=== PATIENT | male | born 1970 | race Two or more races ===

== ENCOUNTER → 2016-06-14 | Outpatient (CLI) | payer OTHER | END | disposition home or self-care (01) | LOC: RAD 15:31 | PROVIDERS: ATTEND Family Medicine | DX: M51.36 Other intervertebral disc degeneration, lumbar region (principal); M41.86 Other forms of scoliosis, lumbar region | CPT/HCPCS: 72110 ==

== ENCOUNTER → 2017-02-20 | Outpatient (CLI) | payer OTHER | END | disposition home or self-care (01) | LOC: RAD 15:19 | PROVIDERS: ATTEND Internal Medicine | DX: M25.521 Pain in right elbow (principal) ==

== ENCOUNTER 2019-05-14 06:13 | Day surgery (SDC) | payer BC ==
[~2019-05-14] VITALS: Ht 177.8 cm; Wt 85.3 kg
[~2019-05-14 06:13] MED LIST: ALLO100T30 PO; AZIT250T89 PO; CEFD300C37 PO; COLC0.6C3 PO; PANT40TA5 PO; PRED20TA PO
[2019-05-14 06:53] VITALS: BP 144/84
[2019-05-14] MEDS ORDERED: SODIUM CHLORIDE 0.9% 1,000 ML IV SCH (06:57)
[2019-05-14 07:40] LABS: INTERNATIONAL NORMALIZED RATIO 0.96 (0.93-1.1); PROTHROMBIN TIME 10.2 Seconds (9.6-11.5)
[2019-05-14] MEDS ORDERED: FENTANYL PF 100 MCG/2ML ONE (07:54)
[2019-05-14] MEDS ORDERED: FLUMAZENIL 0.1 MG/1 ML, 5ML ONE (07:54)
[2019-05-14] MEDS ORDERED: MIDAZOLAM 1 MG/ML, 5ML ONE (07:54)
[2019-05-14] MEDS ORDERED: NALOXONE 1 MG/ML, 2ML ONE (07:54)
[2019-05-25] MEDS ORDERED: FAMO20TA7 PO (07:53)
[2019-05-25] MEDS ORDERED: PRED20TA PO (07:53)
[2019-05-25] MEDS ORDERED: BENZ-17 PO (07:53)
== END 2019-05-14 11:50 | disposition home or self-care (01) ==
LOC: OUT 06:13
PROVIDERS: ATTEND Internal Medicine Nephrology
DX: N17.9 Acute kidney failure, unspecified (principal); K21.9 Gastro-esophageal reflux disease without esophagitis; M10.9 Gout, unspecified; Z98.890 Other specified postprocedural states; Z72.89 Other problems related to lifestyle
CPT/HCPCS: 36415; 50200; 77012; 85610; 88300; 99156; 99157; J2250; J3010; J2310

== ENCOUNTER 2019-07-06 12:05 | Inpatient (IN) | payer BC ==
[~2019-07-06] VITALS: Ht 177.8 cm; Wt 74.8 kg
[~2019-07-06 12:05] MED LIST changes: +BENZ-17 PO; +FAMO20TA7 PO
--- NOTE | 2019-07-06 12:30 | NUR ---
PT BROUGHT IN BY [facility] DUE TO HAVING A SYNCOPAL EPISODE WHILE EATING BREAKFAST. DID NOT FALL. PT STATES THAT HE FELT LIGHTHEADED AND DIZZY. PT WENT TO [facility] WHERE HIS ORTHOSTATIC VS WERE + (SITTING 100/60 STANDING PT BECAME PALE AND BP 60/40). HERE PT STATES THAT HE IS "FEELING MUCH BETTER" AND VS ARE STABLE. 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 PT IS A NEWLY DIAGNOSED KIDNEY DISEASE PT AND DUE TO START DIALYSIS TOMORROW. PT HAS A DIALYSIS PORT ON HIS R [place]CLAVIAN. WILL CONTINUE TO MONITOR PT.
[2019-07-06 12:33] LABS: BASOPHILS # (AUTO) 0.01 x10^3/uL (0-0.1); BASOPHILS % (AUTO) 0 % (0-1); EOSINOPHILS % (AUTO) 0 % (1-7); LYMPHOCYTES # (AUTO) 0.33 x10^3/uL (1-3.4); LYMPHOCYTES % (AUTO) 6 % (22-44); MD NO; MEAN CORPUSCULAR HEMOGLOBIN 29.7 pg (27.5-34.5); MEAN CORPUSCULAR VOLUME 87.3 fL (81-97); MEAN PLATELET VOLUME 7.4 fL (7.4-10.4); MONOCYTES # (AUTO) 0.23 x10^3/uL (0.2-0.8); MONOCYTES % (AUTO) 4 % (2-9); NEUTROPHILS # (AUTO) 4.67 x10^3/uL (1.8-6.8); NEUTROPHILS % (AUTO) 89 % (42-75); PLATELET COUNT 145 x10^3/uL (130-400); RED CELL DISTRIBUTION WIDTH 16.4 % (9.4-14.8)
[2019-07-06 12:39] LABS: ALANINE AMINOTRANSFERASE 26 U/L (12-78); ALBUMIN 2.3 g/dL (3.4-5.0); ANION GAP 10 mmol/L (5-15); CHLORIDE 101 mmol/L (98-107); CREATININE 6.67 mg/dL (0.7-1.3)
[2019-07-06 12:41] LABS: ALKALINE PHOSPHATASE 60 U/L (45-117); BILIRUBIN,TOTAL 0.4 mg/dL (0.2-1.0); TOTAL PROTEIN 5.6 g/dL (6.4-8.2)
[2019-07-06] MEDS ORDERED: ONDANSETRON ODT 4 MG PO PRN (18:00)
[2019-07-06] MEDS ORDERED: hydrALAzine 20 MG/ML, 1ML IVPush PRN (18:00)
[2019-07-06] MEDS ORDERED: ONDANSETRON 2MG/ML, 2ML IVPush PRN (18:00)
[2019-07-06] MEDS ORDERED: PLEASE ENTER HEIGHT AND WEIGHT MC SCH (18:00)
[2019-07-06] MEDS ORDERED: ACETAMINOPHEN 325 MG TABLET PO PRN (18:00)
[2019-07-06] MEDS ORDERED: LIDOCAINE 2% VISCOUS, 100ML MM PRN (18:00)
--- NOTE | 2019-07-06 18:29 | NUR ---
GAVE REPORT TO GABBY PETERSEN
[2019-07-06 18:32] LABS: TROPONIN I 0.089 ng/mL (0.000-0.045)
[2019-07-06] MEDS ORDERED: ARANESP 100 MCG/ML **ESRD SQ SCH (19:00)
[2019-07-06 19:56] VITALS: BP 133/86
[2019-07-06] MEDS: LACTULOSE 10 GM/15 ML UDC PO SCH (23:37)
[2019-07-06] MEDS: SODIUM CHLORIDE 0.9% 1,000 ML IV SCH (23:37)
[2019-07-06] MEDS: FAMOTIDINE 20 MG TABLET PO SCH (23:37)
[2019-07-06] MEDS: FLUCONAZOLE 100 MG TABLET PO SCH (23:38)
[2019-07-06] MEDS: ALLOPURINOL 100 MG TABLET PO SCH (23:38)
[2019-07-06] MEDS: HEPARIN 5,000 UNITS/ML, 1ML SQ SCH (23:39)
[2019-07-07] VITALS (9 sets, daily range): BP systolic 115–163; BP diastolic 74–92
[2019-07-07 00:13] LABS: TROPONIN I 0.094 ng/mL (0.000-0.045)
[2019-07-07] MEDS: DIPHENHYDRAMINE 25 MG CAPSULE PO PRN ×2 (01:36→22:40)
[2019-07-07] MEDS: SODIUM CHLORIDE 0.9% 1,000 ML IV SCH (07:03)
[2019-07-07 07:21] LABS: CALCIUM 7.6 mg/dL (8.5-10.1)
[2019-07-07 07:27] LABS: MEAN CORPUSCULAR HEMOGLOBIN 29.4 pg (27.5-34.5); MEAN CORPUSCULAR HGB CONC 33.3 g/dL (33.2-36.2); MEAN CORPUSCULAR VOLUME 88.3 fL (81-97); MEAN PLATELET VOLUME 7.4 fL (7.4-10.4); PLATELET COUNT 133 x10^3/uL (130-400); RED BLOOD COUNT 2.88 x10^6/uL (4.38-5.82); RED CELL DISTRIBUTION WIDTH 16.4 % (9.4-14.8)
[2019-07-07 07:28] LABS: ANION GAP 7 mmol/L (5-15); CALCIUM 7.7 mg/dL (8.5-10.1); CHLORIDE 103 mmol/L (98-107)
[2019-07-07 07:33] LABS: % IRON SATURATION 17 % (20-55); ALANINE AMINOTRANSFERASE 25 U/L (12-78); ALKALINE PHOSPHATASE 57 U/L (45-117); BILIRUBIN,TOTAL 0.3 mg/dL (0.2-1.0); CREATININE 4.85 mg/dL (0.7-1.3); IRON LEVEL 28 mcg/dL (65-175); TOTAL IRON BINDING CAPACITY 169 mcg/dL (250-450); TROPONIN I 0.089 ng/mL (0.000-0.045)
[2019-07-07] MEDS: LACTULOSE 10 GM/15 ML UDC PO SCH ×2 (08:13→19:58)
[2019-07-07] MEDS: HEPARIN 5,000 UNITS/ML, 1ML SQ SCH ×2 (08:28→16:56)
[2019-07-07] MEDS: DAPSONE 100 MG TABLET PO SCH (08:28)
[2019-07-07] MEDS ORDERED: FLUCONAZOLE 100 MG TABLET PO SCH (09:00)
[2019-07-07] MEDS ORDERED: ALLOPURINOL 100 MG TABLET PO SCH (09:00)
[2019-07-07] MEDS ORDERED: FAMOTIDINE 20 MG TABLET PO SCH (09:00)
[2019-07-07 09:16] LABS: BASOPHILS % (AUTO) 0 % (0-1); EOSINOPHILS % (AUTO) 0 % (1-7); LYMPHOCYTES # (AUTO) 0.24 x10^3/uL (1-3.4); LYMPHOCYTES % (AUTO) 6 % (22-44); MD SCAN; MONOCYTES # (AUTO) 0.12 x10^3/uL (0.2-0.8); MONOCYTES % (AUTO) 3 % (2-9); NEUTROPHILS # (AUTO) 3.38 x10^3/uL (1.8-6.8); NEUTROPHILS % (AUTO) 90 % (42-75)
[2019-07-07] MEDS: IRON SUCROSE COMPLEX 100MG/5ML IV SCH (12:50)
[2019-07-07] MEDS: ALLOPURINOL 100 MG TABLET PO SCH (19:58)
[2019-07-07] MEDS: FAMOTIDINE 20 MG TABLET PO SCH (19:58)
[2019-07-07] MEDS: FLUCONAZOLE 100 MG TABLET PO SCH (19:58)
[2019-07-08 01:02] VITALS: BP 138/76
[2019-07-08 01:03] VITALS: BP 128/75
[2019-07-08 01:04] VITALS: BP 129/76
[2019-07-08] MEDS: HEPARIN 5,000 UNITS/ML, 1ML SQ SCH ×2 (02:06→09:59)
[2019-07-08 05:17] LABS: MEAN CORPUSCULAR HGB CONC 32.9 g/dL (33.2-36.2); MEAN PLATELET VOLUME 8.1 fL (7.4-10.4); PLATELET COUNT 132 x10^3/uL (130-400); RED CELL DISTRIBUTION WIDTH 16.4 % (9.4-14.8)
[2019-07-08 05:25] LABS: ALBUMIN 1.9 g/dL (3.4-5.0); ANION GAP 7 mmol/L (5-15); CALCIUM 7.6 mg/dL (8.5-10.1); CHLORIDE 103 mmol/L (98-107)
[2019-07-08 05:29] LABS: ALANINE AMINOTRANSFERASE 25 U/L (12-78); ALKALINE PHOSPHATASE 55 U/L (45-117); BILIRUBIN,TOTAL 0.3 mg/dL (0.2-1.0); CREATININE 4.31 mg/dL (0.7-1.3); TOTAL PROTEIN 4.8 g/dL (6.4-8.2)
[2019-07-08 06:07] LABS: BASOPHILS % (AUTO) 0 % (0-1); EOSINOPHILS % (AUTO) 0 % (1-7); LYMPHOCYTES # (AUTO) 0.27 x10^3/uL (1-3.4); LYMPHOCYTES % (AUTO) 6 % (22-44); MD SCAN; MONOCYTES # (AUTO) 0.15 x10^3/uL (0.2-0.8); MONOCYTES % (AUTO) 4 % (2-9); NEUTROPHILS # (AUTO) 4.03 x10^3/uL (1.8-6.8); NEUTROPHILS % (AUTO) 90 % (42-75)
[2019-07-08 07:46] VITALS: BP 128/77
[2019-07-08] MEDS: IRON SUCROSE COMPLEX 100MG/5ML IV SCH (09:58)
[2019-07-08] MEDS: LACTULOSE 10 GM/15 ML UDC PO SCH (09:59)
[2019-07-08] MEDS: DAPSONE 100 MG TABLET PO SCH (09:59)
[2019-07-08] MEDS ORDERED: ERGOCALCIFEROL 50,000 UNIT CAPSULE PO SCH (12:30)
[2019-07-08] MEDS ORDERED: PRED20TA PO (12:57)
[2019-07-08] MEDS ORDERED: DIPH25CA26 PO (12:57)
[2019-07-08] MEDS ORDERED: ERGO500017 PO (12:57)
[2019-07-08] MEDS ORDERED: ALLO100T30 PO (12:57)
[2019-07-08] MEDS ORDERED: FLUC100T PO (12:57)
[2019-07-08] MEDS ORDERED: DARB100V SQ (12:57)
[2019-07-08] MEDS ORDERED: LIDO15SO2 MM (12:57)
[2019-07-08] MEDS ORDERED: DAPS100T PO (12:57)
[2019-07-08] MEDS ORDERED: FAMO20TA7 PO (12:57)
[2019-07-08 13:49] VITALS: BP 129/74
== END 2019-07-08 14:40 | disposition home or self-care (01) | DRG 312 ==
LOC: ED 13:10 → EDIP 15:47 → 4WST 19:38
PROVIDERS: ADMIT Internal Medicine; ATTEND Internal Medicine
PROC: 5A1D70Z Performance of Urinary Filtration, Intermittent, Less than 6 Hours Per Day (ICD-10-PCS; principal; 2019-07-06)
PROC: 5A1D70Z Performance of Urinary Filtration, Intermittent, Less than 6 Hours Per Day (ICD-10-PCS; 2019-07-08)
DX: I95.1 Orthostatic hypotension (principal); N18.6 End stage renal disease; B37.0 Candidal stomatitis; I12.0 Hypertensive chronic kidney disease with stage 5 chronic kidney disease or end stage renal disease; M31.30 Wegener's granulomatosis without renal involvement; N17.9 Acute kidney failure, unspecified; D63.1 Anemia in chronic kidney disease; E55.9 Vitamin D deficiency, unspecified; E61.1 Iron deficiency; G47.00 Insomnia, unspecified; K14.0 Glossitis; K21.9 Gastro-esophageal reflux disease without esophagitis; T38.0X5A Adverse effect of glucocorticoids and synthetic analogues, initial encounter; K59.00 Constipation, unspecified; M10.9 Gout, unspecified; R13.10 Dysphagia, unspecified; Z79.899 Other long term (current) drug therapy; Z92.21 Personal history of antineoplastic chemotherapy; Z99.2 Dependence on renal dialysis
CPT/HCPCS: 36415; 70450; 71045; 80053; 82306; 82310; 82330; 82533; 82728; 83036; 83540; 83550; 83735; 83970; 84100; 84484; 85025; 86704; 86706; 87340; 90935; 93005; 93306; G0378; J0882; J1644; J1756; J7030; J7512; Q0163

== ENCOUNTER 2020-07-15 14:11 | Emergency (ER) | payer BC ==
[~2020-07-15] VITALS: Ht 177.8 cm; Wt 73.0 kg
[~2020-07-15 14:11] MED LIST changes: +DAPS100T PO; +DARB100V SQ; +DIPH25CA26 PO; +ERGO500017 PO; +FLUC100T PO; +LIDO15SO2 MM; -PANT40TA5 PO; +PANT40TA6 PO
[2020-07-15 14:49] LABS: BASOPHILS % (AUTO) 1 % (0-1); EOSINOPHILS % (AUTO) 5 % (1-7); LYMPHOCYTES % (AUTO) 20 % (22-44); MEAN CORPUSCULAR HGB CONC 33.2 g/dL (33.2-36.2); MEAN PLATELET VOLUME 7.9 fL (7.4-10.4); MONOCYTES % (AUTO) 12 % (2-9); NEUTROPHILS % (AUTO) 61 % (42-75); PLATELET COUNT 303 x10^3/uL (130-400); RED BLOOD COUNT 2.82 x10^6/uL (4.38-5.82); RED CELL DISTRIBUTION WIDTH 14.7 % (9.4-14.8)
--- NOTE | 2020-07-15 14:50 | NUR ---
production honing machine operator completed and pt on monitor. Med rec completed and daughter at bedside. Pt aware of nothing to eat or drink until results come back. Call light in reach and blade grader operator brought in warm blanket upon returning pt from radiology.
[2020-07-15 14:56] LABS: MD NO
[2020-07-15 15:03] LABS: ALBUMIN 3.6 g/dL (3.4-5.0); ANION GAP 6 mmol/L (5-15); CALCIUM 9.5 mg/dL (8.5-10.1); CHLORIDE 98 mmol/L (98-107)
[2020-07-15] MEDS ORDERED: CALC300T4 PO (15:07)
[2020-07-15] MEDS ORDERED: AMLO-150 PO (15:07)
[2020-07-15] MEDS ORDERED: FAMO40TA61 PO (15:07)
[2020-07-15 15:09] LABS: ALANINE AMINOTRANSFERASE 31 U/L (12-78); ALKALINE PHOSPHATASE 61 U/L (45-117); BILIRUBIN,TOTAL 0.5 mg/dL (0.2-1.0); CREATININE 5.64 mg/dL (0.7-1.3); TOTAL PROTEIN 6.8 g/dL (6.4-8.2); TROPONIN I 0.033 ng/mL (0.000-0.045)
--- NOTE | 2020-07-15 15:21 | NUR ---
Lab and xray results reviewed and chart marked for recheck by . Pt and daughter updated.
--- NOTE | 2020-07-15 16:24 | NUR ---
UA sample able to be given with total of 100mL light yellow UOP emptied. VS remain with ST on EKG and BP WNL. Pt is pain-free and awaiting results and MD plan of care.
[2020-07-15 16:53] LABS: MICROSCOPIC AUTO
--- NOTE | 2020-07-15 17:06 | NUR ---
VSS. Chart marked for recheck with UA results reviewed by RN.
[2020-07-15 18:03] VITALS: BP 117/62
== END 2020-07-15 18:05 | disposition home or self-care (01) ==
LOC: ED 15:06
DX: R11.2 Nausea with vomiting, unspecified (principal); R53.1 Weakness; K59.00 Constipation, unspecified; R00.0 Tachycardia, unspecified; I10 Essential (primary) hypertension; K21.9 Gastro-esophageal reflux disease without esophagitis
CPT/HCPCS: 36415; 74022; 80053; 81001; 83880; 84484; 85025; 93005; 99285

== ENCOUNTER 2020-07-22 18:13 | Inpatient (IN) | payer BC ==
[~2020-07-22] VITALS: Ht 177.8 cm; Wt 68.4 kg
[~2020-07-22 18:13] MED LIST changes: +AMLO-150 PO; +CALC300T4 PO; +FAMO40TA61 PO
[2020-07-22 19:06] LABS: BASOPHILS % (AUTO) 0 % (0-1); EOSINOPHILS % (AUTO) 8 % (1-7); LYMPHOCYTES % (AUTO) 25 % (22-44); MEAN CORPUSCULAR HEMOGLOBIN 32.4 pg (27.5-34.5); MEAN CORPUSCULAR HGB CONC 33.5 g/dL (33.2-36.2); MONOCYTES % (AUTO) 13 % (2-9); NEUTROPHILS % (AUTO) 53 % (42-75); PLATELET COUNT 287 x10^3/uL (130-400); RED BLOOD COUNT 2.79 x10^6/uL (4.38-5.82); RED CELL DISTRIBUTION WIDTH 14.3 % (9.4-14.8)
[2020-07-22 19:07] LABS: MD NO
[2020-07-22 19:13] LABS: ALANINE AMINOTRANSFERASE 31 U/L (12-78); ALBUMIN 3.2 g/dL (3.4-5.0); ANION GAP 7 mmol/L (5-15); CALCIUM 8.6 mg/dL (8.5-10.1); CHLORIDE 96 mmol/L (98-107)
[2020-07-22 19:16] LABS: ALKALINE PHOSPHATASE 65 U/L (45-117); BILIRUBIN,TOTAL 0.4 mg/dL (0.2-1.0); TOTAL PROTEIN 6.3 g/dL (6.4-8.2)
--- NOTE | 2020-07-22 20:30 | NUR ---
Pt found in room with daughter. Placed on bedside monitor and noted lower RA sats. Placed on O2 with good effect noted on reassessment. Pt provided warm blankets with call light in reach and awaiting MD exam. Lab results reviewed.
--- NOTE | 2020-07-22 21:08 | NUR ---
Report given to ADRIA, RN and care transferred.
--- NOTE | 2020-07-22 21:08 | NUR ---
Report from TRINITY Wong. This RN to assume care. Awaiting ERP recheck.
[2020-07-22 21:47] LABS: TROPONIN I 0.065 ng/mL (0.000-0.045)
[2020-07-22] MEDS ORDERED: FUROSEMIDE 100 MG/10 ML IV ONE (22:30)
[2020-07-22] MEDS ORDERED: ASPIRIN 325 MG TABLET PO ONE (22:30)
[2020-07-22] MEDS ORDERED: ASPIRIN 325 MG TABLET ONE (22:36)
[2020-07-22] MEDS ORDERED: FUROSEMIDE 40 MG/4 ML ONE (22:36)
--- NOTE | 2020-07-22 23:08 | NUR ---
Report given to TRINITY Nunes. Patient to be transferred to room 508-1.
[2020-07-22 23:28] VITALS: BP 141/71
[2020-07-22] MEDS ORDERED: PROM25AM6 PO (23:37)
[2020-07-22] MEDS ORDERED: SUCR1TAB PO (23:37)
[2020-07-22] MEDS ORDERED: METO5TAB57 PO (23:37)
[2020-07-23] MEDS ORDERED: LORazepam 2 MG/ML, 1ML IVPush PRN (01:00)
[2020-07-23] MEDS ORDERED: METOCLOPRAMIDE 10MG TABLET PO PRN (01:00)
[2020-07-23] MEDS ORDERED: PROMETHAZINE 25 MG/ML, 1ML IM PRN (01:00)
[2020-07-23] MEDS ORDERED: hydrALAzine 20 MG/ML, 1ML IVPush PRN (01:00)
[2020-07-23] MEDS ORDERED: TEMAZEPAM 15 MG CAPSULE PO PRN (01:00)
[2020-07-23] MEDS ORDERED: ACETAMINOPHEN 325 MG TABLET PO PRN (01:00)
[2020-07-23] MEDS ORDERED: POLYETHYLENE GLYCOL 17 GM PACKET PO PRN (01:00)
[2020-07-23] MEDS ORDERED: BISACODYL 10 MG SUPP PR PRN (01:00)
[2020-07-23] MEDS ORDERED: ERGOCALCIFEROL 50,000 UNIT CAPSULE PO SCH (01:00)
[2020-07-23] MEDS ORDERED: ONDANSETRON 2MG/ML, 2ML IVPush PRN (01:00)
[2020-07-23] MEDS ORDERED: OXYcodone IR 5MG TABLET PO PRN (01:00)
[2020-07-23 01:45] VITALS: BP 141/80
[2020-07-23] MEDS: AMLODIPINE 5 MG TABLET PO SCH ×2 (01:46→20:17)
[2020-07-23] MEDS: AMOXICILLIN/CLAV 875-125MG TABLET PO SCH ×2 (01:46→14:42)
[2020-07-23 02:24] LABS: TROPONIN I 0.071 ng/mL (0.000-0.045)
[2020-07-23] MEDS: PANTOPRAZOLE 40MG TABLET PO SCH (05:47)
[2020-07-23] MEDS: SUCRALFATE 1 GM TABLET PO SCH ×4 (07:00→20:18)
[2020-07-23 07:20] VITALS: BP 150/84
[2020-07-23] MEDS: CALCIUM CARBONATE 500 MG TAB.CHEW PO SCH ×3 (08:00→16:29)
[2020-07-23] MEDS: FAMOTIDINE 20 MG TABLET PO SCH ×2 (12:00→20:18)
[2020-07-23 12:18] VITALS: BP 143/82
[2020-07-23] MEDS ORDERED: FUROSEMIDE 100 MG/10 ML IV ONE (13:00)
[2020-07-23] MEDS ORDERED: ARANESP 100 MCG/ML **ESRD SQ SCH ×2 (13:30→15:34)
[2020-07-23 13:42] LABS: TROPONIN I 0.092 ng/mL (0.000-0.045)
[2020-07-23 17:36] LABS: TROPONIN I 0.089 ng/mL (0.000-0.045)
[2020-07-23 19:28] VITALS: BP 127/79
[2020-07-23] MEDS: ALLOPURINOL 100 MG TABLET PO SCH (20:17)
[2020-07-23] MEDS: DOCUSATE 100 MG CAPSULE PO PRN (20:18)
[2020-07-23] MEDS: MELATONIN 5 MG TABLET PO PRN (22:27)
[2020-07-24 01:08] VITALS: BP 110/71
[2020-07-24] MEDS: AMOXICILLIN/CLAV 875-125MG TABLET PO SCH ×2 (01:34→15:22)
[2020-07-24 07:30] VITALS: BP 130/80
[2020-07-24 08:04] LABS: BASOPHILS % (AUTO) 2 % (0-1); EOSINOPHILS % (AUTO) 10 % (1-7); LYMPHOCYTES % (AUTO) 21 % (22-44); MEAN CORPUSCULAR HEMOGLOBIN 32.9 pg (27.5-34.5); MEAN CORPUSCULAR HGB CONC 33.8 g/dL (33.2-36.2); MONOCYTES % (AUTO) 11 % (2-9); NEUTROPHILS % (AUTO) 56 % (42-75); PLATELET COUNT 315 x10^3/uL (130-400); RED BLOOD COUNT 3.12 x10^6/uL (4.38-5.82)
[2020-07-24 08:05] LABS: MD NO
[2020-07-24 08:13] LABS: ANION GAP 5 mmol/L (5-15); CALCIUM 9.4 mg/dL (8.5-10.1); CHLORIDE 101 mmol/L (98-107); CREATININE 3.88 mg/dL (0.7-1.3)
[2020-07-24] MEDS: CALCIUM CARBONATE 500 MG TAB.CHEW PO SCH ×3 (08:16→15:28)
[2020-07-24] MEDS: FAMOTIDINE 20 MG TABLET PO SCH (08:16)
[2020-07-24] MEDS: SUCRALFATE 1 GM TABLET PO SCH ×4 (08:16→20:44)
[2020-07-24] MEDS: PANTOPRAZOLE 40MG TABLET PO SCH (08:16)
[2020-07-24 10:06] LABS: CHOL/HDL RATIO 4.6; LDL/HDL RATIO 2.6 (0.5-3.0)
[2020-07-24] MEDS: CARVEDILOL 6.25 MG TABLET PO SCH ×2 (10:48→20:44)
[2020-07-24] MEDS: VALSARTAN 80 MG TABLET PO SCH (10:48)
[2020-07-24 12:39] VITALS: BP 105/66
[2020-07-24] MEDS: FUROSEMIDE 80 MG TABLET PO SCH (15:44)
[2020-07-24] MEDS: DOCUSATE 100 MG CAPSULE PO PRN (15:44)
[2020-07-24 19:25] VITALS: BP 127/71
[2020-07-24] MEDS: ALLOPURINOL 100 MG TABLET PO SCH (20:44)
[2020-07-24] MEDS: MELATONIN 5 MG TABLET PO PRN (22:22)
[2020-07-25 00:45] VITALS: BP 115/69
[2020-07-25] MEDS: AMOXICILLIN/CLAV 875-125MG TABLET PO SCH ×2 (02:59→15:52)
[2020-07-25] MEDS: DIPHENHYDRAMINE 50 MG CAPSULE PO PRN ×2 (03:04→22:22)
[2020-07-25] MEDS: CARVEDILOL 6.25 MG TABLET PO SCH ×2 (06:22→20:48)
[2020-07-25] MEDS: PANTOPRAZOLE 40MG TABLET PO SCH (06:22)
[2020-07-25] MEDS: SUCRALFATE 1 GM TABLET PO SCH ×5 (07:00→20:47)
[2020-07-25 07:47] VITALS: BP 130/76
[2020-07-25] MEDS: CALCIUM CARBONATE 500 MG TAB.CHEW PO SCH ×4 (08:00→17:32)
[2020-07-25] MEDS: FUROSEMIDE 80 MG TABLET PO SCH ×2 (08:10→20:48)
[2020-07-25] MEDS: FAMOTIDINE 20 MG TABLET PO SCH (08:10)
[2020-07-25] MEDS: VALSARTAN 80 MG TABLET PO SCH (08:10)
[2020-07-25] MEDS ORDERED: SODIUM CHLORIDE 0.9% 1,000 ML IV SCH (11:00)
[2020-07-25 12:45] VITALS: BP 122/70
[2020-07-25] MEDS ORDERED: MIDAZOLAM 1 MG/ML, 5ML ONE (14:36)
[2020-07-25] MEDS ORDERED: FENTANYL PF 100 MCG/2ML ONE (14:36)
[2020-07-25] MEDS ORDERED: HEPARIN 1,000 UNITS/ML, 10ML ONE (14:36)
[2020-07-25] MEDS ORDERED: LIDOCAINE-MPF 1%, 5ML ONE (14:36)
[2020-07-25] MEDS ORDERED: VERAPAMIL 2.5 MG/ML, 2ML ONE (14:36)
[2020-07-25] MEDS ORDERED: NITROGLYCERIN 5 MG/ML, 10ML ONE (14:37)
[2020-07-25 19:23] VITALS: BP 113/76
[2020-07-25 20:44] VITALS: BP 125/75
[2020-07-25] MEDS: ALLOPURINOL 100 MG TABLET PO SCH (20:47)
[2020-07-25] MEDS: MELATONIN 5 MG TABLET PO PRN (22:22)
[2020-07-25 23:05] VITALS: BP 108/69
[2020-07-26] MEDS: AMOXICILLIN/CLAV 875-125MG TABLET PO SCH (02:38)
[2020-07-26 05:07] VITALS: BP 107/62
[2020-07-26 05:08] LABS: ANION GAP 10 mmol/L (5-15); CHLORIDE 103 mmol/L (98-107); CREATININE 7.94 mg/dL (0.7-1.3)
[2020-07-26] MEDS: PANTOPRAZOLE 40MG TABLET PO SCH (05:08)
[2020-07-26] MEDS: CARVEDILOL 6.25 MG TABLET PO SCH (05:08)
[2020-07-26 07:02] VITALS: BP 120/68
[2020-07-26] MEDS: CALCIUM CARBONATE 500 MG TAB.CHEW PO SCH ×2 (08:17→11:07)
[2020-07-26] MEDS: SUCRALFATE 1 GM TABLET PO SCH ×2 (08:17→11:07)
[2020-07-26] MEDS: VALSARTAN 80 MG TABLET PO SCH (08:30)
[2020-07-26] MEDS: FUROSEMIDE 80 MG TABLET PO SCH (08:30)
[2020-07-26] MEDS: FAMOTIDINE 20 MG TABLET PO SCH (08:30)
[2020-07-26] MEDS ORDERED: SPIRONOLACTONE 25 MG TABLET PO SCH (09:00)
[2020-07-26] MEDS ORDERED: CHLORHEXIDINE 15 ML UDC ONE (09:31)
[2020-07-26] MEDS ORDERED: PROPOFOL 10 MG/ML, 20ML ONE (09:45)
[2020-07-26] MEDS ORDERED: DIPHENHYDRAMINE 50 MG/ML, 1ML IVPush PRN ×2 (10:00)
[2020-07-26] MEDS ORDERED: OXYcodone 5 MG/5 ML ORAL.SOL UDC PO PRN (10:00)
[2020-07-26] MEDS ORDERED: PROMETHAZINE 25 MG/ML, 1ML IVPush PRN (10:00)
[2020-07-26] MEDS ORDERED: HYDROmorphone 1 MG/ML, 1ML INJ IVPush PRN (10:00)
[2020-07-26] MEDS ORDERED: ONDANSETRON 2MG/ML, 2ML IVPush PRN (10:00)
[2020-07-26] MEDS ORDERED: ACETAMINOPHEN 325 MG TABLET PO PRN (10:00)
[2020-07-26] MEDS ORDERED: MIDAZOLAM 1 MG/ML, 2ML IV PRN (10:00)
[2020-07-26] MEDS ORDERED: FENTANYL PF 100 MCG/2ML IV PRN (10:00)
[2020-07-26] MEDS ORDERED: EPHEDRINE 50 MG/ML, 1ML IVPush PRN (10:00)
[2020-07-26] MEDS ORDERED: hydrALAzine 20 MG/ML, 1ML IV PRN (10:00)
[2020-07-26] MEDS ORDERED: DIAZEPAM 5 MG/ML, 2ML IVPush PRN (10:00)
[2020-07-26] MEDS ORDERED: LABETALOL 5MG/ML, 20ML IV PRN (10:00)
[2020-07-26] MEDS ORDERED: PROMETHAZINE 12.5 MG SUPP PR PRN (10:00)
[2020-07-26] MEDS ORDERED: ALBUTEROL SULFATE 2.5 MG/3 ML NPPB PRN (10:00)
[2020-07-26] MEDS ORDERED: MEPERIDINE/PF 25MG/0.5ML IVPush PRN (10:00)
[2020-07-26] MEDS ORDERED: VALS80TA30 PO (10:20)
[2020-07-26] MEDS ORDERED: CARV6.2512 PO (10:20)
[2020-07-26] MEDS ORDERED: AMOX1TAB12 PO (10:20)
[2020-07-26] MEDS ORDERED: PANT40TA6 PO (10:20)
[2020-07-26 12:00] VITALS: BP 105/68
== END 2020-07-26 18:58 | disposition home or self-care (01) | DRG 286 ==
LOC: ED 19:32 → EDIP 22:29 → 5SO 23:14
PROVIDERS: ADMIT Internal Medicine; ATTEND Hospitalist
PROC: 5A1D70Z Performance of Urinary Filtration, Intermittent, Less than 6 Hours Per Day (ICD-10-PCS; 2020-07-23)
PROC: 5A1D70Z Performance of Urinary Filtration, Intermittent, Less than 6 Hours Per Day (ICD-10-PCS; 2020-07-24)
PROC: 4A023N7 Measurement of Cardiac Sampling and Pressure, Left Heart, Percutaneous Approach (ICD-10-PCS; principal; 2020-07-25)
PROC: B2111ZZ Fluoroscopy of Multiple Coronary Arteries using Low Osmolar Contrast (ICD-10-PCS; 2020-07-25)
PROC: B2151ZZ Fluoroscopy of Left Heart using Low Osmolar Contrast (ICD-10-PCS; 2020-07-25)
PROC: 5A1D70Z Performance of Urinary Filtration, Intermittent, Less than 6 Hours Per Day (ICD-10-PCS; 2020-07-25)
PROC: 0DB68ZX Excision of Stomach, Via Natural or Artificial Opening Endoscopic, Diagnostic (ICD-10-PCS; 2020-07-26)
PROC: 0DB98ZX Excision of Duodenum, Via Natural or Artificial Opening Endoscopic, Diagnostic (ICD-10-PCS; 2020-07-26)
DX: I13.2 Hypertensive heart and chronic kidney disease with heart failure and with stage 5 chronic kidney disease, or end stage renal disease (principal); J69.0 Pneumonitis due to inhalation of food and vomit; I50.41 Acute combined systolic (congestive) and diastolic (congestive) heart failure; N18.6 End stage renal disease; J96.01 Acute respiratory failure with hypoxia; N17.9 Acute kidney failure, unspecified; M31.30 Wegener's granulomatosis without renal involvement; I42.9 Cardiomyopathy, unspecified; Z20.822 Contact with and (suspected) exposure to COVID-19; D64.9 Anemia, unspecified; E78.5 Hyperlipidemia, unspecified; I70.0 Atherosclerosis of aorta; K21.9 Gastro-esophageal reflux disease without esophagitis; K29.70 Gastritis, unspecified, without bleeding; K29.80 Duodenitis without bleeding; Z76.82 Awaiting organ transplant status; Z87.891 Personal history of nicotine dependence; Z98.41 Cataract extraction status, right eye; Z99.2 Dependence on renal dialysis
CPT/HCPCS: 36415; 36600; 71045; 71250; 78264; 80048; 80053; 80061; 82803; 83735; 83880; 84100; 84484; 85025; 86704; 86706; 87340; 87635; 88305; 93005; 93306; 93458; 96374; 99156; 99291; C1769; C1894; G0378; J0882; J1644; J1940; J2250; J2405; J2704; J3010; A9541; J7030; Q9967

== ENCOUNTER 2020-08-04 05:44 | Day surgery (SDC) | payer BC ==
[~2020-08-04] VITALS: Ht 177.8 cm; Wt 65.0 kg
[~2020-08-04 05:44] MED LIST changes: +AMOX1TAB12 PO; +CARV6.2512 PO; +METO5TAB57 PO; +PROM25AM6 PO; +SUCR1TAB PO; +VALS80TA30 PO
[2020-08-04] MEDS ORDERED: LACTATED RINGERS 1,000 ML IV SCH (06:30)
[2020-08-04 06:32] VITALS: BP 127/85
[2020-08-04] MEDS ORDERED: CHLORHEXIDINE 15 ML UDC PO ONE (07:00)
[2020-08-04] MEDS ORDERED: PHENYLEPHRINE 10 MG/ML ONE (07:29)
[2020-08-04] MEDS ORDERED: PROPOFOL 10 MG/ML, 50ML ONE (07:29)
[2020-08-04] MEDS ORDERED: SODIUM CHLORIDE 0.9% 1,000 ML IV SCH (07:30)
[2020-08-04] MEDS ORDERED: FENTANYL PF 100 MCG/2ML ONE (07:44)
[2020-08-04] MEDS ORDERED: PROMETHAZINE 25 MG/ML, 1ML IVPush PRN (08:00)
[2020-08-04] MEDS ORDERED: ONDANSETRON 2MG/ML, 2ML IVPush PRN (08:00)
[2020-08-04] MEDS ORDERED: hydrALAzine 20 MG/ML, 1ML IV PRN (08:00)
[2020-08-04] MEDS ORDERED: ACETAMINOPHEN 325 MG TABLET PO PRN (08:00)
[2020-08-04] MEDS ORDERED: FENTANYL PF 100 MCG/2ML IV PRN (08:00)
[2020-08-04] MEDS ORDERED: OXYcodone 5 MG/5 ML ORAL.SOL UDC PO PRN (08:00)
[2020-08-04] MEDS ORDERED: HALOPERIDOL 5 MG/ML IV PRN (08:00)
[2020-08-04] MEDS ORDERED: EPHEDRINE 50 MG/ML, 1ML IVPush PRN (08:00)
[2020-08-04] MEDS ORDERED: METOPROLOL 1 MG/ML, 5ML IV PRN (08:00)
[2020-08-04] MEDS ORDERED: LABETALOL 5MG/ML, 20ML IV PRN (08:00)
== END 2020-08-04 09:15 | disposition home or self-care (01) ==
LOC: OUT 05:44
PROVIDERS: ATTEND Internal Medicine Gastroenterology
DX: D12.0 Benign neoplasm of cecum (principal); K64.1 Second degree hemorrhoids; I13.2 Hypertensive heart and chronic kidney disease with heart failure and with stage 5 chronic kidney disease, or end stage renal disease; N18.6 End stage renal disease; I50.9 Heart failure, unspecified; K21.9 Gastro-esophageal reflux disease without esophagitis; M10.9 Gout, unspecified; F12.90 Cannabis use, unspecified, uncomplicated; Z98.890 Other specified postprocedural states; Z79.899 Other long term (current) drug therapy
CPT/HCPCS: 45385; 88305; J2370; J2704; J3010

== ENCOUNTER → 2020-10-17 | Outpatient (CLI) | payer BC | END | disposition home or self-care (01) | LOC: CFH 08:38 | PROVIDERS: ATTEND Internal Medicine Cardiovascular Disease | DX: I08.0 Rheumatic disorders of both mitral and aortic valves (principal); I42.9 Cardiomyopathy, unspecified | CPT/HCPCS: 93306; 93356 ==